=== PATIENT | male | born 1995 | race Caucasian/White ===

== ENCOUNTER 2018-11-20 23:00 | Emergency (ER) | payer OTHER ==
--- NOTE | 2018-11-20 23:22 | EDM.PDOC ---
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 He noticed swelling of his right ankle lat aspect wit difficult walking, no other acute med issues. BP 124/71 RR 16 Pulse ox 100% on RA Temp 36.6 pulse 72 Onset Date: 11/20/18 Onset Time: 22:00 Duration: Minutes:, Hour(s): Location: Reports: Lower Extremity, Right (ankle) Quality: Reports: Ache, Dull, Pressure Severity: Moderate Improves with: Reports: Rest Worsens with: Reports: Movement Context: Reports: Trauma Associated Symptoms: Reports: No Other Symptoms right ankle Pain Score (Numeric/FACES): 4 - Related Data Allergies Allergy/AdvReac Type Severity Reaction Status Date / Time Penicillins Allergy Hives Verified 11/20/18 23:34 Home Meds: Home Meds NK [No Known Home Meds] 11/20/18 [History] Review of Systems - Review of Systems Review Of Systems: See Below Constitutional: Reports: No Symptoms Eyes: Reports: No Symptoms Ears: Reports: No Symptoms Nose: Reports: No Symptoms Mouth/Throat: Reports: No Symptoms Respiratory: Reports: No Symptoms Cardiovascular: Reports: No Symptoms GI/Abdominal: Reports: No Symptoms Genitourinary: Reports: No Symptoms Musculoskeletal: Reports: Other (ankle pain) Skin: Reports: No Symptoms Neurological: Reports: No Symptoms Psychiatric: Reports: No Symptoms ED EXAM, GENERAL - Physical Exam Exam: See Below Exam Limited By: No Limitations General Appearance: Alert, WD/WN, Mild Distress Eye Exam: Bilateral Eye: Normal Inspection Ears: Normal External Exam Ear Exam: Bilateral Ear: Auricle Normal Nose: Normal Inspection, Normal Mucosa, No Blood Throat/Mouth: Normal Inspection, Normal Lips, Normal Voice, No Airway Compromise Head: Atraumatic, Normocephalic Neck: Normal Inspection, Supple, Non-Tender, Full Range of Motion Respiratory/Chest: No Respiratory Distress, Lungs Clear, Normal Breath Sounds, Chest Non-Tender Cardiovascular: Normal Peripheral Pulses, Regular Rate, Rhythm, No Edema, No Gallop, No Murmur, No Rub Peripheral Pulses: 1+: Brachial (L) GI/Abdominal: Normal Bowel Sounds (Male) Exam: Deferred Rectal (Males) Exam: Deferred Back Exam: Normal Inspection, Full Range of Motion Extremities: Normal Range of Motion, Non-Tender, Normal Capillary Refill, Other (swollen righ lat ankle) Neurological: Alert, Oriented, CN II-XII Intact Psychiatric: Normal Affect, Normal Mood Skin Exam: Warm, Dry, Intact, Normal Color, No Rash Lymphatic: No Adenopathy Course - Vital Signs Text/Narrative:: 23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 He noticed swelling of his right ankle lat aspect wit difficult walking, no other acute med issues. BP 124/71 RR 16 Pulse ox 100% on RA Temp 36.6 pulse 72 PE: WNWD W F with left ankle pain Imaging: Left ankle: NAD, soft tissue swelling Impression: right ankle sprain Tx: Refused pain meds, ICE, Air splint Reexam: Improved Plan: D/C with instructions Last Recorded V/S: Last Vital Signs Temp 36.4 C 11/20/18 23:00 Pulse 72 11/20/18 23:00 Resp 16 11/20/18 23:00 BP 124/71 11/20/18 23:00 Pulse Ox 100 11/20/18 23:00 - Orders/Labs/Meds Orders: Active Orders 24 hr Category Date Time Status Ankle Min 3V Rt [CR] Stat Exams 11/20/18 23:20 Taken Departure - Departure Time of Disposition: 23:53 Disposition: Home, Self-Care 01 Condition: Good Clinical Impression: Moderate right ankle sprain Qualifiers: Encounter type: initial encounter Qualified Code(s): S93.401A - Sprain of unspecified ligament of right ankle, initial encounter - Discharge Information Instructions: Ankle Sprain Referrals: PCP,None [Primary Care Provider] - Forms: ED Department Discharge, ED Return to Work/School Form Additional Instructions: ICE, rest and elevation, Motrin for pain, please f/u with your PMD, come back if your symptoms get worse acutely - My Orders Last 24 Hours: My Active Orders 11/20/18 23:20 Ankle Min 3V Rt [CR] Stat - Assessment/Plan Last 24 Hours: My Active Orders 11/20/18 23:20 Ankle Min 3V Rt [CR] Stat
--- NOTE | 2018-11-21 15:04 | CR ---
INDICATION: Rolled right ankle with lateral pain. RIGHT ANKLE: Three views of the right were obtained 11/20/18--no comparisons. Mild soft tissue swelling is noted overlying the lateral malleolus. An acute fracture, dislocation or other significant bone or joint abnormality was not identified. The ankle mortise appears to be intact with symmetrical joint space. A bony density at the anterior aspect of the talus is a normal variant called an os supertali. IMPRESSION: No acute fracture or dislocation. MTDD
== END 2018-11-21 00:20 | disposition home or self-care (01) ==
LOC: FB.ED 23:00
DX: S93.401A Sprain of unspecified ligament of right ankle, initial encounter (principal); Z88.0 Allergy status to penicillin; X50.1XXA Overexertion from prolonged static or awkward postures, initial encounter; Y99.0 Civilian activity done for income or pay
CPT/HCPCS: 73610-RT; 99283-25